=== PATIENT | female | born 1935 | race Caucasian/White ===

== ENCOUNTER → 2017-05-07 | Outpatient (CLI) | payer MEDICARE, BC ==
--- NOTE | 2017-05-08 10:54 | MM ---
Reason for exam: screening (asymptomatic). Last mammogram was performed 1 year and 2 months ago. History: Patient is postmenopausal. Family history of breast cancer in mother at age 79. Took estrogen for 3 years beginning at age 53. Physical Findings: A clinical breast exam by your physician is recommended on an annual basis and results should be correlated with mammographic findings. MG Screening Mammo w CAD Bilateral CC and MLO view(s) were taken. Prior study comparison: February 27, 2016, bilateral MG screening mammo w CAD. December 06, 2014, bilateral MG screening mammo w CAD. No significant changes when compared with prior studies. ASSESSMENT: Benign, BI-RAD 2 RECOMMENDATION: Routine screening mammogram of both breasts in 1 year.
== END | disposition home or self-care (01) ==
LOC: RADMAMWWP 14:33
PROVIDERS: ATTEND Obstetrics & Gynecology
DX: Z12.31 Encounter for screening mammogram for malignant neoplasm of breast (principal)

== ENCOUNTER → 2018-01-28 | Outpatient (CLI) | payer MEDICARE, BC ==
--- NOTE | 2018-01-28 17:32 | CT ---
EXAMINATION TYPE: CT chest w con DATE OF EXAM: 01/28/2018 COMPARISON: 07/04/2015 HISTORY: Chronic fibrosis of the lung CT DLP: 410 mGycm, Automated exposure control for dose reduction was used. CONTRAST: Performed injected with 100 ml mL of Omnipaque 300. TECHNIQUE: Axial images were obtained at 5 mm thick sections. Reconstructed images are reviewed on [employer] computer in the coronal plane. FINDINGS: Thyroid is not well visualized. Subglottic airway appears normal. Proximal bronchial branch es appear normal. Small amount of fibrosis may be at the posterior lung bases bilaterally. Mild bronchiectasis in the l ower lung cordova. Upper lung cordova appear normal. No enlarged mediastinal or hilar adenopathy is evident. The ascending aorta diameter at the level o f the main pulmonary artery is 3.3 cm. The main pulmonary artery diameter at the bifurcation is 2.1 cm. Moderate coronary artery calcification is present. Limited CT sections are obtained through the upper abdomen. Abdomen is essentially unremarkable. IMPRESSIONS: 1. Mild bronchiectasis and mild fibrosis at the lung bases similar to 07/04/2015.
== END | disposition home or self-care (01) ==
LOC: RADCTMAIN 12:01
PROVIDERS: ATTEND Internal Medicine Critical Care Medicine
DX: J84.10 Pulmonary fibrosis, unspecified (principal); J47.9 Bronchiectasis, uncomplicated
CPT/HCPCS: 82565; 84520; 71260; 36415; Q9967

== ENCOUNTER 2018-05-08 19:03 | Emergency (ER) | payer MEDICARE, BC ==
[2018-05-08 19:25] VITALS: TEMP 98.7
[2018-05-08] MEDS ORDERED: TOPICAL SKIN ADHESIVE 1 EACH AMP TOPICAL ONE (19:41)
[2018-05-08] MEDS ORDERED: DIPH,PERTUS(ACELL)TETVAC-LF 0.5 ML VIAL IM ONE (19:41)
--- NOTE | 2018-05-08 20:06 | ED ---
Head Injury HPI <Jose Mesa - Last Filed: 05/08/18 21:04> - General Source: patient, family, RN/MD, RN notes reviewed, old records reviewed Mode of arrival: ambulatory Limitations: no limitations <Ruth Mendoza - Last Filed: 05/08/18 22:08> - General Chief complaint: Head Injury Stated complaint: Fall/hit head Time Seen by Provider: 05/08/18 19:33 - History of Present Illness Initial comments: 8-year-old female chief complaint of tripping and falling and head injury. Questionable loss of consciousness. She reports she was wearing glasses and the edge of her glasses cut the left side of her eyebrow. She states that she has some minor neck pain as well. Patient states that she's had no other symptoms prior to the fall. Denies any chest pain or shortness breath. No hand or knee pain. Patient states she otherwise feels well. (Ruth Mendoza) - Related Data Home Medications Medication Instructions Recorded Confirmed Ascorbic Acid [Vitamin C] 500 mg PO HS 05/08/18 05/08/18 Atorvastatin [Lipitor] 10 mg PO HS 05/08/18 05/08/18 Cholecalciferol [Vitamin D3] 2,000 unit PO HS 05/08/18 05/08/18 Famotidine 40 mg PO DAILY 05/08/18 05/08/18 Latanoprost Ophth [Xalatan 0.005%] 1 drops BOTH EYES HS 05/08/18 05/08/18 Levothyroxine Sodium [Synthroid] 75 mcg PO DAILY 05/08/18 05/08/18 Losartan-Hctz 50-12.5 mg [Hyzaar 1 tab PO HS 05/08/18 05/08/18 50-12.5] Hildebran-3 Fatty Acids/Fish Oil [Fish 1 cap PO HS 05/08/18 05/08/18 Oil 1,000 mg Softgel] Vitamin B Complex 1 cap PO HS 05/08/18 05/08/18 Allergies/Adverse reactions: Allergies Allergy/AdvReac Type Severity Reaction Status Date / Time No Known Allergies Allergy Verified 05/08/18 19:49 Review of Systems ROS Other: All systems not noted in ROS Statement are negative. <Jose Mesa - Last Filed: 05/08/18 21:04> ROS Other: All systems not noted in ROS Statement are negative. <Ruth Mendoza - Last Filed: 05/08/18 22:08> ROS Statement: Those systems with pertinent positive or pertinent negative responses have been documented in the HPI. Past Medical History Past Medical History: Hyperlipidemia, Hypertension, Thyroid Disorder History of Any Multi-Drug Resistant Organisms: None Reported Past Surgical History: Cholecystectomy, Hysterectomy, Joint Replacement, Orthopedic Surgery Additional Past Surgical History / Comment(s): carpal tunnel Past Psychological History: No Psychological Hx Reported Smoking Status: Former smoker Past Alcohol Use History: None Reported Past Drug Use History: None Reported <Ruth Mendoza - Last Filed: 05/08/18 22:08> General Exam <Jose Mesa - Last Filed: 05/08/18 21:04> Limitations: no limitations General appearance: alert, in no apparent distress Head exam: Present: atraumatic, normocephalic, normal inspection Eye exam: Present: normal appearance, PERRL, EOMI. Absent: scleral icterus, conjunctival injection, periorbital swelling ENT exam: Present: normal exam, normal oropharynx, mucous membranes moist, other (Patient has 1cm laceratin over left eyebrow) Neck exam: Present: normal inspection, full ROM. Absent: tenderness, meningismus, lymphadenopathy Respiratory exam: Present: normal lung sounds bilaterally. Absent: respiratory distress, wheezes, rales, rhonchi, stridor Cardiovascular Exam: Present: regular rate, normal rhythm, normal heart sounds. Absent: systolic murmur, diastolic murmur, rubs, gallop, clicks GI/Abdominal exam: Present: soft, normal bowel sounds. Absent: distended, tenderness, guarding, rebound, rigid Extremities exam: Present: normal inspection, full ROM, normal capillary refill. Absent: tenderness, pedal edema, joint swelling, calf tenderness Back exam: Present: normal inspection Neurological exam: Present: alert, oriented X3, CN II-XII intact Psychiatric exam: Present: normal affect, normal mood Skin exam: Present: warm, dry, intact, normal color. Absent: rash <Ruth Mendoza - Last Filed: 05/08/18 22:08> - General Exam Comments Initial Comments: Well-appearing 82-year-old female. Alert and oriented. No acute distress. ( Ruth Mendoza) Course <Jose Mesa - Last Filed: 05/08/18 21:04> <Ruth Mendoza - Last Filed: 05/08/18 22:08> Vital Signs 05/08/18 05/08/18 19:21 21:24 Temperature 98.7 F Pulse Rate 78 109 H Respiratory 20 16 Rate Blood Pressure 147/83 166/79 O2 Sat by Pulse 99 99 Oximetry - Reevaluation(s) Reevaluation #1: 05/08/18 20:[address] results. Final disposition by Dr. Guido. (Ruth Mendoza) Procedures - Laceration Laceration #1 Site: face (L eyebrow) Size (cm): 1 Description: linear Depth: simple, single layer Anesthetic Used: lidocaine 1% Anesthesia Technique: local infiltration Amount (mls): 2 Pre-repair: wound explored, irrigated extensively Type of Sutures: nylon Size of Sutures: 5-0 Number of Sutures: 2 Technique: simple, interrupted Patient Tolerated Procedure: well, no complications Laceration #2 Site: face (L eyebrow) Size (cm): 1 (abrasion) Description: linear Anesthetic Used: lidocaine 1% Pre-repair: wound explored, irrigated extensively Type of Sutures: other (dermabond) Technique: simple, interrupted Patient Tolerated Procedure: well, no complications <Ruth Mendoza - Last Filed: 05/08/18 22:08> Medical Decision Making <Jose Mesa - Last Filed: 05/08/18 21:04> - Radiology Data Radiology results: report reviewed <Ruth Mendoza - Last Filed: 05/08/18 22:08> - Medical Decision Making 82-year-old female with chief complaint of fall and facial laceration. She has some swelling and tenderness over the left eyebrow and eye. Small puncture wound noted. This was thoroughly cleaned and closed with suture. It is neurologically intact. No focal or lateralizing findings and final disposition by Dr. Guido, pending computed tomography scan. (Ruth Mendoza) - Radiology Data CT brain and C spine, negative for acute changes. CT facial bones shows left facial laceration, no fracutre. (Ruth Mendoza) Disposition Is patient prescribed a controlled substance at d/c from ED?: No <Jose Mesa - Last Filed: 05/08/18 21:04> Is patient prescribed a controlled substance at d/c from ED?: No Time of Disposition: 22:08 <Ruth Mendoza - Last Filed: 05/08/18 22:08> Clinical Impression: Closed head injury, Fall, Laceration Disposition: HOME SELF-CARE Condition: Good Instructions: Laceration (ED), Head Injury (ED) Referrals: Jorge Bojorquez MD [Primary Care Provider] - 1-2 days
--- NOTE | 2018-05-08 20:50 | CT ---
EXAMINATION TYPE: CT brain angelia vazquez DATE OF EXAM: 05/08/2018 COMPARISON: NONE HISTORY: Fall injury, laceration to left orbital area neck pain headache CT DLP: 1157.3 mGycm Automated exposure control for dose reduction was used. TECHNIQUE: CT scan of the head and cervical spine are performed without contrast. FINDINGS: There is left frontal scalp soft tissue swelling. There is cerebral cortical atrophy. The re is no mass effect nor midline shift. There is no sign of intracranial hemorrhage. The calvarium is intact. There is scalp soft tissue air on the left side consistent with laceration. There is degenerative disc space narrowing throughout the cervical spine. There is mild anterior subl uxation of C4 in relation to C5 of 5 mm. There is multilevel hypertrophic facet arthropathy. There is no evidence of cervical spine fracture. Skull base is intact. There is some straightening of the cer vical spine. Impression Cerebral atrophy. No acute intracranial abnormality. Left frontal scalp laceration and soft tissue sw elling. Multilevel spondylotic change. No fracture seen in the cervical spine.
--- NOTE | 2018-05-08 20:53 | CT ---
EXAMINATION TYPE: CT facial bones wo con DATE OF EXAM: 05/08/2018 COMPARISON: NONE HISTORY: Fall injury, laceration to left orbital area CT DLP: 538.6 mGycm Automated exposure control for dose reduction was used. TECHNIQUE: CT scan of the sinuses is performed without contrast, axial images are obtained, coronal r eformatted images are also reviewed. FINDINGS: The orbital margins are intact. There is no evidence of retro-orbital mass. There is left f rontal scalp soft tissue swelling. There is laceration deformity of the lateral left frontal scalp. T he globes are symmetric. There is no evidence of a blowout fracture. There is fairly normal aeration of the paranasal sinuses. There is some mucosal thickening at the left ostiomeatal complex. Maxilla i s intact. Zygomatic arches appear normal. The mandibular ring is intact. Nasal bone is intact. IMPRESSION: Left-sided scalp changes as above. No fracture seen. Left mild periorbital soft tissue sw elling.
[2018-05-08 21:25] VITALS: BP 166/79; PULSE 109; RESP 16
== END 2018-05-08 21:25 | disposition home or self-care (01) ==
LOC: EC 19:03
DX: S01.112A Laceration without foreign body of left eyelid and periocular area, initial encounter (principal); M54.2 Cervicalgia; E78.5 Hyperlipidemia, unspecified; I10 Essential (primary) hypertension; E07.9 Disorder of thyroid, unspecified; Z87.891 Personal history of nicotine dependence; Z79.899 Other long term (current) drug therapy; Z23 Encounter for immunization; Y92.89 Other specified places as the place of occurrence of the external cause; W01.198A Fall on same level from slipping, tripping and stumbling with subsequent striking against other object, initial encounter
CPT/HCPCS: 12011; 70450; 70486; 72125; 90471; 90715; 99284

== ENCOUNTER → 2018-05-22 | Outpatient (CLI) | payer MEDICARE, BC ==
--- NOTE | 2018-05-22 15:44 | US ---
EXAMINATION TYPE: US carotid duplex BILAT DATE OF EXAM: 05/22/2018 COMPARISON: NONE CLINICAL HISTORY: R55 syncope and collapse. Syncope with collapse EXAM MEASUREMENTS: RIGHT: Peak Systolic Velocity (PSV) cm/sec ----- Right CCA: 114.2 ----- Right ICA: 121.1 ----- Right ECA: 109.5 ICA/CCA ratio: 1.1 RIGHT: End Diastole cm/sec ----- Right CCA: 25.6 ----- Right ICA: 42.2 ----- Right ECA: 12.4 LEFT: Peak Systolic Velocity (PSV) cm/sec ----- Left CCA: 86.7 ----- Left ICA: 110.6 ----- Left ECA: 105.3 ICA/CCA ratio: 1.3 LEFT: End Diastole cm/sec ----- Left CCA: 16.7 ----- Left ICA: 31.2 ----- Left ECA: 8.7 VERTEBRALS (direction of flow): Right Vertebral: Antegrade Left Vertebral: Antegrade Rhythm: Normal Mild plaque bilateral bifurcations. No evidence of significant stenosis Grayscale, color Doppler, spectral Doppler imaging performed of the carotid arteries, waveform analys is shows no significant stenosis of the proximal internal carotid arteries. IMPRESSION: No hemodynamic significant stenosis of the proximal internal carotid arteries bilaterall y by Doppler criteria, an indirect measurement of carotid stenosis
== END | disposition home or self-care (01) ==
LOC: RADUSWWP 15:01
PROVIDERS: ATTEND Family Medicine
DX: R55 Syncope and collapse (principal)
CPT/HCPCS: 93880

== ENCOUNTER → 2018-05-29 | Outpatient (CLI) | payer MEDICARE, BC ==
--- NOTE | 2018-05-30 16:02 | EEG ---
ELECTROENCEPHALOGRAM REPORT OUTPATIENT EEG REPORT: DATE OF EE05/29/2018. ELECTROENCEPHALOGRAPHIC EXAMINATION REPORT: INDICATION FOR EXAMINATION: This patient is an 82-year-old female being evaluated for recent fall and left facial laceration. CT scan of the brain was negative for any acute changes. AGE: [age]. EEG FINDINGS: A routine 21-channel awake digital EEG recording was accomplished utilizing the 10-20 international system with bipolar and referential montages. The background activity in the most alert resting state consists of a low to medium amplitude, fairly well developed and well sustained 7 Hz activity over the posterior head regions. This posterior rhythm attenuates to eye opening. There is a small amount of low amplitude 18-20 Hz beta activity seen maximally over the anterior head regions. Muscle and movement artifact was observed on a few occasions during the tracing. Hyperventilation was not performed. Photic stimulation at flash frequencies of 2-30 Hz produced a minimal occipital driving response. No epileptiform discharges were seen. IMPRESSION: This EEG is within normal limits for the patient's age. The EEG failed to reveal any focal, lateralized, or epileptiform abnormalities. Clinical correlation is recommended. MMODL / IJN: [id number] /
== END | disposition home or self-care (01) ==
LOC: NEUROMAIN 07:59
PROVIDERS: ATTEND Family Medicine
DX: R55 Syncope and collapse (principal)
CPT/HCPCS: 95819

== ENCOUNTER → 2018-12-22 | Outpatient (CLI) | payer MEDICARE, BC ==
--- NOTE | 2018-12-24 09:50 | MM ---
Reason for exam: screening (asymptomatic). Last mammogram was performed 1 year and 7 months ago. History: Patient is postmenopausal. Family history of breast cancer in mother at age 79. Took estrogen for 3 years beginning at age 53. Physical Findings: A clinical breast exam by your physician is recommended on an annual basis and results should be correlated with mammographic findings. MG 3D Screening Mammo W/Cad Bilateral CC and MLO view(s) were taken. Prior study comparison: May 07, 2017, bilateral MG screening mammo w CAD. February 27, 2016, bilateral MG screening mammo w CAD. There are scattered fibroglandular densities. No significant changes when compared with prior studies. ASSESSMENT: Benign, BI-RAD 2 RECOMMENDATION: Routine screening mammogram of both breasts in 1 year.
== END | disposition home or self-care (01) ==
LOC: RADMAMWWP 13:06
PROVIDERS: ATTEND Obstetrics & Gynecology
DX: Z12.31 Encounter for screening mammogram for malignant neoplasm of breast (principal)
CPT/HCPCS: 77063; 77067

== ENCOUNTER → 2022-07-01 | Outpatient (CLI) | payer MEDICARE, BC ==
[2022-07-01 19:18] LABS: African American GFR (CKD) 61.1 (60.0-200.0); Albumin 4.4 g/dL (3.8-4.9); Albumin/Globulin Ratio 1.61 (1.60-3.17); Anion Gap 13.6 mmol/L (10.00-18.00); BUN/Creat Ratio 22.22 Ratio (12.00-20.00); Blood Urea Nitrogen 21.6 mg/dL (9.0-27.0); Calcium 10.5 mg/dL (8.7-10.3); Carbon Dioxide 21.9 mmol/L (20.0-27.5); Globulin 2.7 g/dL (1.6-3.3); Non-African American GFR(CKD) 52.8 (60.0-200.0); T4, Free (Free Thyroxine) 1.47 ng/dL (0.800-1.800); Total Bilirubin 0.3 mg/dL (0.30-1.20); Total Protein 7.1 g/dL (6.2-8.2)
[2022-07-01 19:46] LABS: Basophils # (A) 0.08 X 10*3/uL (0.00-0.10); Basophils % (A) 1.2 %; Eosinophils # (A) 0.35 X 10*3/uL (0.04-0.35); Eosinophils % (A) 5.4 %; HCT 37.3 % (37.2-46.3); HGB 12.2 g/dL (12.0-15.0); Immature Grans, Automated 0.2 %; Lymphocytes # (A) 1.81 X 10*3/uL (0.90-5.00); MCH 30.8 pg (27.0-32.0); MCHC 32.7 g/dL (32.0-37.0); MCV 94.2 fL (80.0-97.0); Mean Platelet Volume 12.3 fL (9.5-12.2); Monocytes # (A) 0.37 X 10*3/uL (0.20-1.00); Monocytes % (A) 5.7 %; NRBC Per 100 WBC 0 /100 WBCS (0.0-0.0); Neutrophils # (A) 3.85 X 10*3/uL (1.80-7.70); Neutrophils % (A) 59.5 %; Platelet Count 228 X 10*3/uL (140-440); RBC 3.96 X 10*6/uL (4.10-5.20); RDW 12.8 % (11.5-14.5); WBC 6.47 X 10*3/uL (4.50-10.00)
[2022-07-01 20:14] LABS: Phosphorus 3.1 mg/dL (2.4-5.1)
== END | disposition home or self-care (01) ==
LOC: LABWHC1 14:23
PROVIDERS: ATTEND Family Medicine
DX: Z13.1 Encounter for screening for diabetes mellitus (principal); I12.9 Hypertensive chronic kidney disease with stage 1 through stage 4 chronic kidney disease, or unspecified chronic kidney disease; E03.9 Hypothyroidism, unspecified; N18.31 Chronic kidney disease, stage 3a; R68.89 Other general symptoms and signs; R53.83 Other fatigue
CPT/HCPCS: 36415; 80053; 80069; 82607; 82746; 83036; 83970; 84439; 84443; 84481; 85025

== ENCOUNTER 2025-02-17 13:14 | Emergency (ER) | payer MEDICARE, BC ==
[2025-02-17 13:22] VITALS: RESP 18; TEMP 98
--- NOTE | 2025-02-17 13:32 | ED ---
General Adult HPI - General Chief complaint: Back Pain/Injury Stated complaint: fall Time Seen by Provider: 02/17/25 13:16 Source: patient, EMS, RN notes reviewed Mode of arrival: EMS Limitations: no limitations - History of Present Illness Initial comments: Patient is an 89-year-old female present to the emergency department with concerns for back discomfort. Patient slipped on the floor and landed on her back. Patient does have back discomfort since that time. Patient denies any other area of injury. Patient states discomfort is mild at this time. Patient does not want any pain medication. No incontinence or retention of bowel or bladder. No leg weakness. No loss of sensation. Incident occurred just prior to arrival. Patient states she was not on the ground for a long period of time. No head injury. No loss of consciousness. - Related Data Home Medications Medication Instructions Recorded Confirmed Atorvastatin [Lipitor] 10 mg PO DAILY 05/08/18 02/17/25 Latanoprost Ophth [Xalatan 0.005%] 1 drops BOTH EYES HS 05/08/18 02/17/25 Levothyroxine Sodium [Synthroid] 75 mcg PO DAILY 05/08/18 02/17/25 Allergies Allergy/AdvReac Type Severity Reaction Status Date / Time No Known Allergies Allergy Verified 02/17/25 14:03 Review of Systems ROS Statement: Those systems with pertinent positive or pertinent negative responses have been documented in the HPI. ROS Other: All systems not noted in ROS Statement are negative. Constitutional: Denies: fever Eyes: Denies: eye pain ENT: Denies: ear pain Respiratory: Denies: dyspnea Cardiovascular: Denies: chest pain Gastrointestinal: Denies: abdominal pain Musculoskeletal: Reports: as per HPI, back pain Neurological: Denies: headache, weakness Past Medical History Past Medical History: Dementia, Hyperlipidemia, Hypertension, Thyroid Disorder History of Any Multi-Drug Resistant Organisms: None Reported Past Surgical History: Cholecystectomy, Hysterectomy, Joint Replacement, Orthopedic Surgery Additional Past Surgical History / Comment(s): carpal tunnel Past Psychological History: No Psychological Hx Reported Smoking Status: Former smoker Past Alcohol Use History: None Reported Past Drug Use History: None Reported General Exam Limitations: no limitations General appearance: alert, in no apparent distress Head exam: Present: atraumatic, normocephalic Eye exam: Present: normal appearance, PERRL, EOMI ENT exam: Present: normal oropharynx Neck exam: Present: normal inspection. Absent: tenderness Respiratory exam: Present: normal lung sounds bilaterally Cardiovascular Exam: Present: regular rate, normal rhythm Expanded Peripheral pulses: 2+: Dorsalis Pedis (R), Dorsalis Pedis (L) GI/Abdominal exam: Present: soft. Absent: tenderness Extremities exam: Present: normal inspection, full ROM. Absent: tenderness Back exam: Present: vertebral tenderness (Mild diffuse tenderness lumbar spine) Neurological exam: Present: alert, CN II-XII intact. Absent: motor sensory deficit Expanded Neurological exam: Present: protecting the airway Speech: Present: fluid speech Cranial nerves: EOM's Intact: Normal, Facial Sensation: Normal Sensory exam: Lower Extremity Light Touch: Normal Motor strength exam: RUE: 5, LUE: 5, RLE: 5, LLE: 5 Eye Response: (4) open spontaneously Motor Response: (6) obeys commands Verbal Response: (5) oriented Psychiatric exam: Present: normal affect, normal mood Skin exam: Present: normal color Course Vital Signs 02/17/25 13:20 Temperature 98.0 F Pulse Rate 73 Respiratory 18 Rate Blood Pressure 150/104 O2 Sat by Pulse 96 Oximetry Medical Decision Making - Medical Decision Making Was pt. sent in by a medical professional or institution (, PA, ARCHITECTURE INSTRUCTOR, urgent care, hospital, or [facility]...) When possible be specific @ -No Did you speak to anyone other than the patient for history (EMS, parent, family, police, friend...)? What history was obtained from this source @ -Family arrives later and provides additional history that patient had difficulty getting up after the fall secondary to discomfort Did you review nursing and triage notes (agree or disagree)? Why? @ -I reviewed and agree with nursing and triage notes Were old charts reviewed (outside hosp., previous admission, EMS record, old EKG, old radiological studies, urgent care reports/EKG's, [facility] records)? Report findings @ -No old charts were reviewed Differential Diagnosis (chest pain, altered mental status, abdominal pain women, abdominal pain men, vaginal bleeding, weakness, fever, dyspnea, syncope, headache, dizziness, GI bleed, back pain, seizure, CVA, palpatations, mental health, musculoskeletal)? @ -Differential Musculoskeletal Muscular strain, contusion, ligament sprain, fracture, arthritis, septic arthritis, bursitis, cellulitis, muscle spasm, nerve compression, DVT, arterial occlusion, herpes zoster, electrolyte abnormality, tumor.... This is not meant to be in all inclusive list EKG interpreted by me (3pts min.). @ -As above X-rays interpreted by me (1pt min.). @ -Lumbar x-rays show degenerative changes, no obvious fracture CT interpreted by me (1pt min.). @ -None done U/S interpreted by me (1pt. min.). @ -None done What testing was considered but not performed or refused? (CT, X-rays, U/S, labs)? Why? @ -None What meds were considered but not given or refused? Why? @ -None Did you discuss the management of the patient with other professionals (professionals i.e. , PA, ARCHITECTURE INSTRUCTOR, lab, RT, psych nurse, social human services assistants, binding stitcher, teacher, fare enforcement officer, caser up)? Give summary @ -No Was smoking cessation discussed for >3mins.? @ -No Was critical care preformed (if so, how long)? @ -No Were there social determinants of health that impacted care today? How? (Homelessness, low income, unemployed, alcoholism, drug addiction, transportation, low edu. Level, literacy, decrease access to med. care, senior care, rehab)? @ -No Was there de-escalation of care discussed even if they declined (Discuss DNR or withdrawal of care, Hospice)? DNR status @ -No What co-morbidities impacted this encounter? (DM, HTN, Smoking, COPD, CAD, Cancer, CVA, ARF, Chemo, Hep., AIDS, mental health diagnosis, sleep apnea, morbid obesity)? @ -None Was patient admitted / discharged? Hospital course, mention meds given and route, prescriptions, significant lab abnormalities, going to OR and other pertinent info. @ -Patient presents with back pain following a fall. X-rays without acute abnormality. Patient only had mild discomfort on arrival. On reevaluation pat ient is near symptom-free. Patient able to get up and ambulate without difficulty. Patient and family updated. Patient will be discharged. Undiagnosed new problem with uncertain prognosis? @ -No Drug Therapy requiring intensive monitoring for toxicity (Heparin, Nitro, Insulin, Cardizem)? @ -No Were any procedures done? @ -No Diagnosis/symptom? @ -Fall, back pain Acute, or Chronic, or Acute on Chronic? @ -Acute, acute Uncomplicated (without systemic symptoms) or Complicated (systemic symptoms)? @ -Default Side effects of treatment? @ -No Exacerbation, Progression, or Severe Exacerbation? @ -No Poses a threat to life or bodily function? How? (Chest pain, [place], [place], pneumonia, PE, COPD, DKA, ARF, appy, cholecystitis, CVA, Diverticulitis, Homicidal, Suicidal, threat to staff... and all critical care pts) @ -No Disposition Clinical Impression: Fall, Low back pain Disposition: HOME SELF-CARE Condition: Stable Instructions (If sedation given, give patient instructions): Acute Low Back Pain (ED) Additional Instructions: [id number] Tylenol or Motrin as needed. Please follow-up with your primary care physician in the next couple of days for recheck. Return for weakness, increased falls, worsening symptoms or other concerns. Is patient prescribed a controlled substance at d/c from ED?: No Referrals: Jorge Bojorquez MD [Primary Care Provider] - 1-2 days Time of Disposition: 14:43
--- NOTE | 2025-02-17 14:22 | XR ---
EXAMINATION TYPE: XR lumbar spine 2 or 3V DATE OF EXAM: 02/17/2025 2:15 PM COMPARISON: None CLINICAL INDICATION: Female, 89 years old with history of fall; PHH, pain TECHNIQUE: XR lumbar spine 2 or 3V - Frontal, lateral and coned in L5-S1 lateral views of the spine. FINDINGS: No evidence of any acute osseous pathology. No evidence of loss of vertebral body height i s seen. There is grade 1 anterolisthesis of L4 on L5 and L5 S1 Alignment of the lumbar vertebral bodi es. Scattered disc space narrowing. Multilevel marginal osteophyte formation throughout the visualize d spine. There is facet joint arthropathy throughout the spine. Scattered at least mild neural forami nal stenosis. Atherosclerosis of the arterial vasculature. Right hip arthroplasty changes partially v isualized. IMPRESSION: 1. Somewhat limited evaluation due to patient body habitus and overlapping structures. No evidence fo r acute fracture. 2. Moderate multilevel disc degeneration. 3. Grade 1 anterolisthesis of L4 on L5 and L5 S1 Alignment [facility], , 02/17/2025 2:20 PM
[2025-02-17 14:56] VITALS: BP 128/72; PULSE 97
== END 2025-02-17 14:56 | disposition home or self-care (01) ==
LOC: EC 13:14
DX: M54.50 Low back pain, unspecified (principal); Z87.891 Personal history of nicotine dependence; W01.0XXA Fall on same level from slipping, tripping and stumbling without subsequent striking against object, initial encounter
CPT/HCPCS: 72100; 99283